=== PATIENT | male | born 1985 | race African-American/Black ===

== ENCOUNTER 2019-04-27 00:19 | Emergency (ER) | payer BC ==
[~2019-04-27] VITALS: Ht 177.8 cm; Wt 88.0 kg
[~2019-04-27 00:19] MED LIST: HYDR-4011 PO; NO MEDS TAKEN
[2019-04-27 00:23] VITALS: BP 129/79; PULSE 108; RESP 20; Ht 177.8 cm; Wt 88.0 kg
[2019-04-27] MEDS ORDERED: HYDROCODONE/APAP (5/325) TAB PO ONE (02:00)
== END 2019-04-27 02:10 | disposition home or self-care (01) ==
LOC: FTE 00:19
DX: H92.01 Otalgia, right ear (principal); F17.210 Nicotine dependence, cigarettes, uncomplicated
CPT/HCPCS: 99283; Z7610